=== PATIENT | female | born 1960 ===

== ENCOUNTER 2020-11-26 13:39 | Emergency (ER) | payer BC ==
[~2020-11-26] VITALS: Ht 162.6 cm; Wt 105.2 kg
--- NOTE | 2020-11-26 14:04 | NUR ---
ERMD AT BEDSIDE FOR EVALUATION.
--- NOTE | 2020-11-26 14:05 | NUR ---
PATIENT WALKED BACK FROM TRIAGE WITH CHIEF C/O RIGHT LOWER BACK PAIN THAT STARTED THIS MORNING. PATIENT REPORTS N/V/D AND ABD PAIN X2 WEEKS. PATIENT DENIES FEVER. ACCOMPANIED BY SIGNIFICANT OTHER. POLON, CONNECTED TO MONITORS, CALL LIGHT WITHIN REACH.
--- NOTE | 2020-11-26 14:12 | NUR ---
PATIENT AMBULATED TO BATHROOM WITH STEADY GAIT FOR URINE SAMPLE.
[2020-11-26] MEDS ORDERED: ONDANSETRON 2MG/ML, 2ML ONE (14:17)
[2020-11-26] MEDS ORDERED: MORPHINE SULFATE 4 MG/ML, 1ML ONE (14:18)
--- NOTE | 2020-11-26 14:32 | NUR ---
20 GAUGE IV STARTED RIGHT FA, BLOOD COLLECTED, LABELLED AND SENT TO LAB. PATIENT MEDICATED PER eMAR. URINE COLLECTED AND SENT TO LAB. NADN, VSS, CALL LIGHT WITHIN REACH.
[2020-11-26 14:56] LABS: BASOPHILS % (AUTO) 1 % (0-1); EOSINOPHILS % (AUTO) 3 % (1-7); LYMPHOCYTES % (AUTO) 16 % (22-44); MEAN CORPUSCULAR HEMOGLOBIN 26.9 pg (27.0-34.8); MEAN CORPUSCULAR HGB CONC 32.6 g/dL (32.4-35.8); MEAN PLATELET VOLUME 9.5 fL (7.4-10.4); MONOCYTES % (AUTO) 8 % (2-9); NEUTROPHILS % (AUTO) 72 % (42-75); PLATELET COUNT 284 x10^3/uL (130-400); RED BLOOD COUNT 4.51 x10^6/uL (3.82-5.3); RED CELL DISTRIBUTION WIDTH 15.1 % (9.6-15.2)
[2020-11-26 14:57] LABS: MD NO
[2020-11-26] MEDS ORDERED: SODIUM CHLORIDE FLUSH 10ML SYR IVF ONE (15:00)
[2020-11-26] MEDS ORDERED: SODIUM CHLORIDE 0.9% 1,000 ML IV ONE (15:00)
[2020-11-26] MEDS ORDERED: MORPHINE SULFATE 4 MG/ML, 1ML IVPush PRN (15:00)
[2020-11-26] MEDS ORDERED: ONDANSETRON 2MG/ML, 2ML IVPush ONE (15:00)
[2020-11-26 15:05] LABS: MICROSCOPIC AUTO
[2020-11-26 15:08] LABS: ALBUMIN 3.2 g/dL (3.4-5.0); ANION GAP 7 mmol/L (5-15); CALCIUM 8.5 mg/dL (8.5-10.1); CHLORIDE 112 mmol/L (98-107)
[2020-11-26 15:12] LABS: ALANINE AMINOTRANSFERASE 34 U/L (12-78); ALKALINE PHOSPHATASE 171 U/L (45-117); BILIRUBIN,TOTAL 0.3 mg/dL (0.2-1.0); CREATININE 0.63 mg/dL (0.55-1.02); TOTAL PROTEIN 7.1 g/dL (6.4-8.2)
--- NOTE | 2020-11-26 15:32 | NUR ---
PATIENT TO CT SCAN.
[2020-11-26] MEDS ORDERED: OMNIPAQUE 350 MG/ML, 100ML BOTTLE ONE (15:38)
[2020-11-26 16:47] VITALS: BP 121/77
--- NOTE | 2020-11-26 17:19 | NUR ---
IV removed with tip intact. Patient given discharge instructions and they have confirmed that they understand the instructions. Patient stable and ambulatory with steady gait from ED with significant other at bedside.
== END 2020-11-26 17:20 | disposition home or self-care (01) ==
LOC: ED 16:30
DX: M54.5 Low back pain (principal); M54.6 Pain in thoracic spine; R10.9 Unspecified abdominal pain
CPT/HCPCS: 36415; 71045; 74177; 80053; 81001; 83690; 85025; 93005; 96361; 96374; 96375; 99285; J2270; J2405; J7030; Q9967